=== PATIENT | male | born 1945 | race Caucasian/White ===

== ENCOUNTER 2017-04-21 15:37 | Inpatient (IN) | payer OTHER ==
[2017-04-21] VITALS (11 sets, daily range): BP systolic 84–136; BP diastolic 59–96
[~2017-04-21] VITALS: Ht 175.3 cm; Wt 81.7 kg
--- NOTE | ~2017-04-21 | EKG ---
[address] [place] [address] ELECTROCARDIOGRAM REPORT Name: URBAN DOUGLASS Room #: 215-P ADM IN M.R.#: [id number] Admission: 04/21/17 Attend Phys: Neil To MD Discharge: Date of : 47 Report #: [id number] THIS REPORT FOR: //name// [facility] Test Date: 2017-04-24 Test Time: 06:51:11 Pat Name: URBAN DOUGLASS Department: Room: 215 P Gender: M [employer] Specialist: johnathan : 1945 Requested By: Rigoberto Kenney Order Number: [id number] MD: Ben Queen Measurements Intervals [place] Rate: 94 P: [place]: QRS: -24 QRSD: 112 T: 103 QT: 404 QTc: 506 Interpretive Statements Atrial flutter with variable AV conduction Left bundle branch block Compared to ECG 04/21/2017 15:48:22 heart rate has slowed Electronically Signed On 04-24-2017 8:36:34 CDT by Ben Queen [email or web address] <ELECTRONICALLY SIGNED> By: Ben Queen MD, [facility] 04/24/17 0836 0 0 Ben Queen MD, [facility] /EPI
--- NOTE | ~2017-04-21 | HC ---
[facility] [place] [address] CONSULTATION Name: URBAN DOUGLASS Room #: 215-P [facility]#: [id number] Admission: 04/21/17 Attend Phys: Neil To MD Discharge: 04/25/17 Date of : 47 Report #: [id number] THIS REPORT FOR: //name// CC: Neil Dominguez MD DATE OF SERVICE: 04/22/2017 DATE OF SERVICE: 04/22/2017. PRIMARY CARE PHYSICIAN: Janie Dominguez MD HISTORY OF PRESENT ILLNESS: The patient is a 72-year-old white male who I was asked to see in the hospital today after he was noted to be in atrial flutter. The patient has no previous history of heart disease. He actually underwent a nuclear stress test back in May 2015 because of an abnormal coronary artery calcium score. The nuclear stress test showed no evidence of ischemia, ejection fraction of 58%. The patient does not exercise on a regular basis. He also smokes half pack of cigarettes a day. He does use an inhaler at home. Recently, he has had increasing shortness of breath. He went to see his primary care physician yesterday and was noted to be hypoxic by oximetry. He was sent by ambulance to the emergency room here. In the emergency room, he was found to be in atrial flutter. I was asked to see him for further evaluation and treatment. PAST MEDICAL HISTORY: Otherwise significant for rotator cuff surgery, hernia repair, tonsillectomy. He has no history of hypertension, diabetes, or hyperlipidemia. He had previous screening that showed minimal carotid plaque. MEDICATIONS: Include Ventolin, Spiriva, Wellbutrin, aspirin. ALLERGIES: He has an allergy to PENICILLIN. FAMILY HISTORY: Negative for heart disease. SOCIAL HISTORY: He is . He and his live in [place], [place]. He is a retired maintenance carpenter. Smokes several cigarettes a day but recently quit. Rarely drinks alcohol. REVIEW OF SYSTEMS: He has had no history of stroke, peptic ulcer disease, liver disease, kidney disease, cancer, psychiatric illness, chronic skin condition. Does wear glasses. PHYSICAL EXAMINATION: GENERAL: An elderly male, lying in bed. He appeared in no distress. [address] [address] CONSULTATION Name: URBAN DOUGLASS Room #: 215-P [facility] IN ..#: [id number] Admission: 04/21/17 Attend Phys: Neil To MD Discharge: 04/25/17 Date of : 47 Report #: [id number] VITAL SIGNS: He had a blood pressure of 110/ pulse is 80 and irregular, respirations are nonlabored. He is afebrile. HEENT: Mucous membranes are moist. He is anicteric. Conjunctivae pink. NECK: Veins nondistended. No carotid bruits. CHEST: Distant breath sounds. CARDIOVASCULAR: Irregular rhythm. ABDOMEN: Soft. EXTREMITIES: No edema. Dorsalis pedis pulse 1+ bilaterally. SKIN: Warm, dry. NEUROLOGIC: Nonfocal. DIGNOSTIC DATA: His ECG shows atrial flutter with left axis and septal Q-waves. His workup so far, he had a chest x-ray on admission yesterday that showed aneurysmal dilatation of the aorta. His CT scan of the chest using the PE protocol showed no pulmonary embolus and atelectasis. LABORATORY DATA: Sodium 137, glucose 163. Liver function studies were normal. White blood cell count 8.5, hemoglobin 14.9. IMPRESSION AND RECOMMENDATIONS: 1. Atrial flutter. Rate controlled with digoxin and diltiazem. I would recommend anticoagulation with Xarelto. 2. Chronic obstructive pulmonary disease. 3. History of tobacco abuse. 4. Mild carotid stenosis. <ELECTRONICALLY SIGNED> By: Rigoberto Kenney MD, [facility] 04/29/17 0755 [id number] 0148 Rigoberto Kenney MD, FACC /nt
--- NOTE | ~2017-04-21 | HC ---
[facility] [place] [address] CONSULTATION Name: URBAN DOUGLASS Room #: 215-P [facility] IN ..#: [id number] Admission: 04/21/17 Attend Phys: Neil To MD Discharge: Date of : 47 Report #: [id number] THIS REPORT FOR: //name// CC: Neil Dominguez DATE OF SERVICE: 04/22/2017 PRIMARY CARE PHYSICIAN: Dr. Janie Dominguez. REFERRAL PHYSICIAN: Dr. Neil To. REASON FOR REFERRAL: Dyspnea. HISTORY OF PRESENT ILLNESS: The patient is a 72-year-old white male who presents to the Emergency Room with progressive dyspnea. A pulmonary consultation was requested. The patient has known severe COPD. He is normally followed by Dr. Oj Levy [facility]. He normally uses Spiriva, Symbicort 160 mcg 2 puffs twice a day, Ventolin for COPD. He is not oxygen dependent. The patient was in his usual state of health until for the past week. Patient states he has been short of breath for some time. He thinks it was much worse over the past few weeks. He has had cough productive of purulent sputum. Otherwise, denies any chest pain, hemoptysis, nausea, vomiting, diarrhea. PAST MEDICAL HISTORY: Notable for COPD, history of tobacco abuse, having quit smoking in 2011, a questionable history of asthma, fatty liver, allergic rhinitis. PAST SURGICAL HISTORY: Status post bilateral herniorrhaphy, right rotator cuff repair. ALLERGIES: PENICILLIN, reactions unspecified. HOME MEDICATIONS: Include Spiriva, Rowan, Claritin, Symbicort, Ventolin, Celexa, Flonase, fish oil supplements, multivitamins. FAMILY HISTORY: Noncontributory. SOCIAL HISTORY: Tobacco use as mentioned above. Denies any alcohol use. REVIEW OF SYSTEMS: As mentioned above, otherwise 10-point system review are negative. [facility] [address] [place] [address] CONSULTATION Name: URBAN DOUGLASS Room #: 215-[facility] IN [facility].#: [id number] Admission: 04/21/17 Attend Phys: Neil To MD Discharge: Date of : 47 Report #: [id number] Of note, in the ER, the patient was found to be in atrial flutter with 2:1 block, adenosine was given. PHYSICAL EXAMINATION: GENERAL: He is awake, alert, in no apparent distress. VITAL SIGNS: Temperature is 97.8 degrees Fahrenheit, pulse is 65, respiratory rate is 25, blood pressure 96/62 mmHg, saturation 99%. HEENT: Unremarkable. NECK: Supple without lymphadenopathy or thyromegaly. CHEST: Breath sounds are decreased bilaterally with mild expiratory wheezes. Few scattered crackles are heard in the bases. CARDIOVASCULAR: Regular. Normal S1 and S2. There are no murmurs or gallop. Pulses are 2+/4+ bilaterally. ABDOMEN: Soft, nontender, no organomegaly or masses felt. GENITOURINARY: Deferred. RECTAL: Deferred. EXTREMITIES: There is no edema, cyanosis or clubbing. LABORATORY DATA: Portable chest x-ray and CT chest angiogram reviewed. No evidence of pulmonary embolus. Diffuse bilateral bullous changes are noted. Infiltrates are seen in the right lower lobe. EKG shows T-wave abnormalities, possible anterior infarct. Electrolytes are normal. Liver function test is normal. WBC 11,700 without bandemia. Platelets are normal. Hemoglobin 16.3, arterial blood gas revealed pH 7.46, pCO2 of 37, pO2 92 on 4 liters of O2. Albumin 2.7. IMPRESSION: 1. Acute hypoxic respiratory failure in this 72-year-old white male secondary to exacerbation of COPD. Chest CT and chest x-rays suggest possible right lower lobe pneumonia, in this patient gram-negative and possible aspiration should be considered. 2. Chronic obstructive pulmonary disease exacerbation. CT chest shows diffuse bullous disease in type. 3. Protein-calorie malnutrition with an albumin of 2.7, felt to be severe. RECOMMENDATION: Agree with current treatment plans including corticosteroids, bronchodilators, and broad spectrum antibiotics. In terms of levalbuterol, we will recommend switching from 1.25 mg to 0.63 mg nebulized q. 6 hours along with nebulized ipratropium. DVT and GI prophylaxis will be addressed. Wean O2 for saturation 90%. [address] [address] CONSULTATION Name: URBAN DOUGLASS Room #: 215-P [facility] IN M.R.#: [id number] Admission: 04/21/17 Attend Phys: Neil To MD Discharge: Date of : 47 Report #: [id number] Thank you for this consultation. <ELECTRONICALLY SIGNED> By: Erik Ballard MD 04/23/17 1732 1644 2223 Erik Ballard MD /nt
--- NOTE | ~2017-04-21 | EKG ---
[address] [place] [address] ELECTROCARDIOGRAM REPORT Name: URBAN DOUGLASS Room #: 215-[facility] IN M.R.#: [id number] Admission: 04/21/17 Attend Phys: Neil To MD Discharge: 04/25/17 Date of : 47 Report #: [id number] THIS REPORT FOR: //name// [facility] Test Date: 2017-04-25 Test Time: 06:44:29 Pat Name: URBAN GONZALEZLEY Department: Room: 215 P Gender: M Tower Hand: leo : 1945 Requested By: Rigoberto Kenney Order Number: [id number] MD: Ben Queen Measurements Intervals [place] Rate: 101 P: [place]: QRS: -32 QRSD: 119 T: 165 QT: 362 QTc: 470 Interpretive Statements Atrial flutter with predominant 2:1 AV block Incomplete left bundle branch block Compared to ECG 04/24/2017 06:51:11 Ventricular response is slower Electronically Signed On 04-27-2017 15:33:28 CDT by Ben Queen [email or web address] <ELECTRONICALLY SIGNED> By: Ben Queen MD, [facility] 04/27/17 1533 0644 0644 Ben Queen MD, [facility] /EPI
--- NOTE | ~2017-04-21 | 2DMMODE ---
[facility] [address] [place] [address] 2 D/M-MODE ECHOCARDIOGRAM Name: URBAN DOUGLASS Room #: 215-P [facility] IN [facility]#: [id number] Admission: 04/21/17 Attend Phys: Neil To, Discharge: Date of : 47 Date of Service: 04/23/17 1521 Report #: [id number] THIS REPORT FOR: //name// APPROVED REPORT Study performed: 04/23/2017 09:12:14 EXAM: Comprehensive 2D, Doppler, and color-flow Echocardiogram Patient Location: Bedside Room #: [facility] Status: routine Other Information Study Quality: Fair Indications COPD Atrial Flutter Echo Enhancing Agent Indication: Rule out Shunt Agent(s) / Amount(s) Used: Agitated Saline 7 cc 2D Dimensions RVDd: 45.36 mm IVC: 27.00 mm Volumes Left Atrial Volume (Systole) Single Plane 4CH: 35.07 mL Single Plane 2CH: 55.46 mL LA ESV Index: 26.00 mL/m2 Aortic Valve AoV Peak Suhas.: 1.25 m/s AO Peak Gr.: 6.25 mmHg LVOT Max P.48 mmHg LVOT Max V: 0.93 m/s Pulmonary Valve PV Peak Suhas.: 0.87 m/s PV Peak Gr.: 3.00 mmHg Tricuspid Valve TR Peak Suhas.: 3.00 m/s RAP Estimate: 15.00 mmHg TR Peak Gr.: 35.98 mmHg PA Pressure: 51.00 mmHg [facility] [address] [place] [address] 2 D/M-MODE ECHOCARDIOGRAM Name: URBAN DOUGLASS Room #: 215-P ADM IN M.R.#: [id number] Admission: 04/21/17 Attend Phys: Neil To, Discharge: Date of : 47 Date of Service: 04/23/17 1521 Report #: [id number] Left Ventricle The left ventricle is normal size. There is normal left ventricular wall thickness. The left ventricular systolic function is normal. The left ventricular ejection fraction is within the normal range. LVEF is 50%. This study is not technically sufficient to allow evaluation of the LV diastolic function. Patient in Atrial Flutter. Right Ventricle Right ventricle is mildly dilated. Right ventricle is mildly hypokinetic. Atria The left atrium size is normal. 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 Right atrium is mildly dilated. Aortic Valve The aortic valve is not well visualized.. Trace aortic regurgitation. There is no aortic valvular stenosis. Mitral Valve The mitral valve is normal in structure. Trace mitral regurgitation. No evidence of mitral valve stenosis. Tricuspid Valve The tricuspid valve is normal in structure. There is mild tricuspid regurgitation. . There is moderate pulmonary hypertension with an estimated PAP of 51 mmHg. Pulmonic Valve Pulmonic valve is not well visualized. Great Vessels The aortic root is normal in size. IVC is dilated and collapses <50% with inspiration. Pericardium There is no pericardial effusion. 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 There is mild tricuspid regurgitation. . There is moderate pulmonary hypertension with an estimated PAP of 51 mmHg. The left ventricular systolic function is normal. The left ventricular ejection fraction is within the normal range. [facility] [address] [place] [address] 2 D/M-MODE ECHOCARDIOGRAM Name: URBAN DOUGLASS Room #: 215-P [facility] IN [facility].#: [id number] Admission: 04/21/17 Attend Phys: Neil To, Discharge: Date of : 47 Date of Service: 04/23/17 1521 Report #: [id number] Right ventricle is mildly dilated. Right atrium is mildly dilated. <ELECTRONICALLY SIGNED> By: Rigoberto Kenney MD, [facility]ACC 04/23/17 1521 1521 152 Rigoberto Kenney MD, FACC /INF
--- NOTE | ~2017-04-21 | HC ---
[facility] [place] [address] CONSULTATION Name: URBAN DOUGLASS Room #: 215-P [facility] IN ..#: [id number] Admission: 04/21/17 Attend Phys: Neil To MD Discharge: 04/25/17 Date of : 46 Report #: [id number] THIS REPORT FOR: //name// CC: Neil Dominguez HISTORY OF PRESENT ILLNESS: The patient is a 72-year-old white male who was admitted with acute shortness of breath, noted to have acute hypoxic respiratory failure with COPD exacerbation. He was diagnosed with a right lower lobe infiltrate. He also has atrial flutter would consider for cardioversion in [address] Kenney. He has been followed by Pulmonary Medicine, Internal Medicine and Cardiology. He has improved, but is still needing O2 and does desaturate further with activity. He also has decreased balance and functional mobility and ADL deficits. We are seeing him in rehabilitation medicine consultation. PAST MEDICAL HISTORY: Includes asthma, COPD. HABITS: Former smoker, quit in 2011. PAST SURGICAL HISTORY: Includes right rotator cuff repair, colonoscopy, bilateral hernia repair. ALLERGIES: PENICILLIN. MEDICATIONS: Please see the full medication listing. FAMILY HISTORY: Noncontributory. SOCIAL HISTORY: Lives in a house with his . There were two steps in and another five steps as it is a raised ranch/split level. He was not on O2 premorbidly. REVIEW OF SYSTEMS: Complains of increased shortness of breath with increased activity. No complaints of chest pain, abdominal discomfort. No focal extremity pain complaints. No complaints of headache or any bowel or bladder changes were verbalized. PHYSICAL EXAMINATION: GENERAL: He is a 72-year-old white male in no obvious distress. He has 4 liters at rest, has gone up to 6 liters with activity and does tend to desaturate. VITAL SIGNS: Temperature is 98, pulse 110, respirations 16, blood pressure 124/86. He is alert. HEENT: Appeared to be benign. Nasal prong O2 is in place. NEUROLOGIC: Facies are symmetric. He has functional range of motion of both upper extremities with strength of grade 4-/5. DTRs are trace to 1. He does [facility] [address] [place] [address] CONSULTATION Name: URBAN DOUGLASS Amelia Room #: 215-P [facility] IN .R.#: [id number] Admission: 04/21/17 Attend Phys: Neil To MD Discharge: 04/25/17 Date of : 47 Report #: [id number] have some tremulousness of his upper extremities. In his lower extremities, there is no focal calf swelling, functional range of motion with strength of grade 4-/5. DTRs are trace to 1. He is standby assistance for sit to stand. He tends to have decreased balance, needs the roller walker, was min assist to try to get in and out of the showering and OT. With increased activity, he would tend to desaturate and the O2 needed to be turned up to 6 liters as noted above. ASSESSMENT: A 72-year-old white male with the following problem list: 1. Pulmonary rehabilitation. 2. Chronic obstructive pulmonary disease exacerbation. 3. Acute hypoxic respiratory failure. 4. Medical complexity with generalized debilitation. 5. Right lower lobe infiltrate. 6. Atrial flutter, considering cardioversion in 3 weeks. 7. Glucose intolerance. 8. Past tobacco abuse. PLAN: The patient is a candidate for an acute in-hospital inpatient rehabilitation stay. From a preadmission screening perspective: 1. Prior level of function is well delineated above. 2. Expected level of improvement would be for the patient to become modified independent with transfers, mobility and ADLs to improve balance as well as functional mobility and ADL independence, overall endurance and ideally to decreased O2 needs. Would anticipate the length of stay that should be fairly short, would hope between 5-10 days. 3. Evaluation of the patient's risk for clinical complications. He does have the multiple medical comorbidities as noted above. 4. Condition that caused the need for rehabilitation would be the pulmonary rehabilitation and the medical complexity with generalized debilitation. 5. Treatments needed would include PT and OT 1 and 1-1/2 hours per day each five days a week throughout the duration of the acute inpatient rehabilitation stay. 6. Anticipated discharge destination would be back to the home setting. 7. Would anticipate home healthcare therapies once he is ready for discharge back to the home setting. 8. The patient meets diagnostic criteria for an acute in-hospital inpatient rehabilitation stay. He meets medical necessity criteria and we will have the multiple outplacement consultant physicians including Pulmonary Medicine, Cardiology and Internal Medicine continue to follow while he is on the acute rehab cabrera. He has the tolerance for an acute in-hospital inpatient rehabilitation stay and has appropriate discharge goals back to the home setting. <ELECTRONICALLY SIGNED> By: Rigoberto Moreno MD 04/29/17 1518 1255 0552 Rigoberto Moreno MD /nt
--- NOTE | ~2017-04-21 | EKG ---
[address] [place] [address] ELECTROCARDIOGRAM REPORT Name: URBAN DOUGLASS Room #: 215-P ADM IN M.R.#: [id number] Admission: 04/21/17 Attend Phys: Neil To MD Discharge: Date of : 47 Report #: [id number] THIS REPORT FOR: //name// [facility] Test Date: 2017-04-23 Test Time: 00:07:53 Pat Name: URBAN GONZALEZLEY Department: Room: 215 P Gender: M Land Manager: Veronica Cantor : 1945 Requested By: Low John Order Number: [id number] MD: Ben Queen Measurements Intervals [place] Rate: 114 P: 89 [place]: 175 QRS: -40 QRSD: 124 T: 251 QT: 351 QTc: 484 Interpretive Statements Atrial flutter with 2-1 AV conduction Left bundle branch block Compared to ECG 04/21/2017 15:48:22 Left bundle-branch block now present Electronically Signed On 04-24-2017 8:05:06 CDT by Ben Queen [email or web address] <ELECTRONICALLY SIGNED> By: Ben Queen MD, [facility] 04/24/17 0805 0007 Ben Queen MD, [facility] /EPI
--- NOTE | ~2017-04-21 | EKG ---
[address] [address] ELECTROCARDIOGRAM REPORT Name: URBAN DOUGLASS Room #: 249-P ADM IN M.R.#: [id number] Admission: 04/21/17 Attend Phys: Neil To MD Discharge: Date of : 47 Report #: [id number] THIS REPORT FOR: //name// [facility] ED Test Date: 2017-04-21 Test Time: 15:48:22 Pat Name: URBAN GONZALEZLEY Department: Room: 249 Gender: M Digital Retoucher: JUAN R : 1945 Requested By: Colt Tubbs Order Number: [id number] MD: Ben Queen Measurements Intervals [place] Rate: 136 P: 83 [place]: 86 QRS: -51 QRSD: 145 T: 263 QT: 363 QTc: 547 Interpretive Statements Atrial flutter with 2-1 AV conduction Nonspecific IVCD with LAD Probable anterior infarct, age indeterminate Abnormal T, consider ischemia, diffuse leads No previous ECG available for comparison Electronically Signed On 04-22-2017 8:46:30 CDT by Ben Queen [email or web address] <ELECTRONICALLY SIGNED> By: Ben Queen MD, [facility] 04/22/17 0846 1548 1548 Ben Queen MD, [facility] /EPI
--- NOTE | ~2017-04-21 | EKG ---
[address] [address] ELECTROCARDIOGRAM REPORT Name: URBAN DOUGLASS Room #: 215-[facility] IN M.R.#: [id number] Admission: 04/21/17 Attend Phys: Neil To MD Discharge: 04/25/17 Date of : 47 Report #: [id number] THIS REPORT FOR: //name// [facility] Test Date: 2017-04-24 Test Time: 22:22:48 Pat Name: URBAN GONZALEZLEY Department: Room: 215 Gender: M Cancer Program Consultant: Maria C GÓMEZ : 1945 Requested By: Neil To Order Number: [id number] MD: Ben Queen Measurements Intervals [place] Rate: 109 P: 80 [place]: 204 QRS: -36 QRSD: 122 T: 169 QT: 383 QTc: 516 Interpretive Statements Supraventricular tachycardia, probably atrial flutter with 2-1 AV conduction Left bundle branch block Compared to ECG 04/24/2017 06:51:11 Ventricular response has increased Electronically Signed On 04-27-2017 15:30:25 CDT by Ben Queen [email or web address] <ELECTRONICALLY SIGNED> By: Ben Queen MD, [facility] 04/27/17 1530 222 21 Ben Queen MD, [facility] /EPI
[~2017-04-21 15:37] MED LIST: FISH OIL 1,0001 EAC5 PO; FLONASE 0.05%50 MCG NASAL; MULTIVITAMINS PO; VENTOLIN HFA INH8 GM INH
[2017-04-21 16:43] LABS: ABG SAMPLE TYPE ARTERIAL; BE(vivo) 2.5 mmol/L (-2 to +3); HCO3 26.1 mmol/L (22.0-26.0); LACTATE 1.56 mmol/L (0.5-2.0); O2(CT) 22.1 mL/dL (15.0-23.0); O2Hb 96.1 % (92.0-98.0); PCO2 37.6 mmHg (35.0-45.0); PO2 92.3 mmHg (80.0-100.0); sO2 97.4 % (92.0-98.0); tCO2 27.3 mmol/L (24.0-30.0)
[2017-04-21 16:44] LABS: ABG COMMENT NO COMPLICATIONS.; STICK SITE R.RADIAL
[2017-04-21 16:53] LABS: HEMATOCRIT 47.9 % (42.0-52.0); HEMOGLOBIN 16.3 gm/dL (14.0-18.0); MCH 31.9 pg (26.0-34.0); MCHC 33.9 g/dL (28.0-37.0); MCV 94.1 fL (80.0-100.0); PLATELET COUNT 253 thou/uL (150-400); RDW 13.5 % (10.5-14.5); WBC 11.7 thou/uL (4.0-11.0)
[2017-04-21 16:54] LABS: MANUAL DIFF YES
[2017-04-21 17:05] LABS: ANION GAP 7 mmol/L (7-16); BUN 11 mg/dL (7-18); CALCIUM 9.1 mg/dL (8.5-10.1); CHLORIDE 99 mmol/L (98-107); CO2 31 mmol/L (21-32); CREATININE 0.9 mg/dL (0.7-1.3); GLUCOSE 149 mg/dL (74-106); POTASSIUM 4.1 mmol/L (3.5-5.1); SODIUM 137 mmol/L (136-145)
[2017-04-21 17:09] LABS: PROTIME 10.8 Seconds (9.3-11.4)
[2017-04-21 17:17] LABS: NT-PRO BRAIN NAT PEPTIDE 632 pg/mL (<300); TROPONIN-I < 0.04 ng/mL (<0.04-0.07)
[2017-04-21 17:24] LABS: ABSOLUTE NEUTROPHILS 10.2 thou/uL (1.4-8.2); TOTAL CELL COUNT 100
[2017-04-21 17:25] LABS: ANISOCYTOSIS 1+
[2017-04-21] MEDS ORDERED: SPIRIVA18 MCG INH (20:33)
[2017-04-21] MEDS ORDERED: ALLEGRA ALLERGY60 MG PO (20:34)
[2017-04-21] MEDS ORDERED: CLARITIN10 MG PO (20:35)
[2017-04-21] MEDS ORDERED: SYMBICORT160 MCG/4. INH (20:36)
[2017-04-21] MEDS ORDERED: VENTOLIN HFA INH8 GM INH (20:38)
[2017-04-21] MEDS ORDERED: CELEXA10 M1 PO (20:39)
[2017-04-22] VITALS (22 sets, daily range): BP systolic 86–160; BP diastolic 60–145
[2017-04-22 04:48] LABS: HEMATOCRIT 44.2 % (42.0-52.0); HEMOGLOBIN 14.9 gm/dL (14.0-18.0); MCH 31.9 pg (26.0-34.0); MCHC 33.8 g/dL (28.0-37.0); MCV 94.4 fL (80.0-100.0); RBC 4.68 mil/uL (4.50-6.00); RDW 13.4 % (10.5-14.5); WBC 8.5 thou/uL (4.0-11.0)
[2017-04-22 05:08] LABS: ALBUMIN 2.7 g/dL (3.4-5.0); ALKALINE PHOSPHATASE 51 U/L (46-116); ANION GAP 8 mmol/L (7-16); BUN 11 mg/dL (7-18); CALCIUM 8.5 mg/dL (8.5-10.1); CHLORIDE 103 mmol/L (98-107); CO2 26 mmol/L (21-32); CREATININE 0.9 mg/dL (0.7-1.3); GLUCOSE 163 mg/dL (74-106); POTASSIUM 4.7 mmol/L (3.5-5.1); SGOT 21 U/L (15-37); SGPT 23 U/L (30-65); SODIUM 137 mmol/L (136-145); TOTAL BILIRUBIN 0.4 mg/dL (<0.1-1.0); TOTAL PROTEIN 6.4 g/dL (6.4-8.2); TROPONIN-I < 0.04 ng/mL (<0.04-0.07)
[2017-04-22] MEDS ORDERED: WELLBUTRIN SR150 MG PO (08:22)
[2017-04-23 03:13] LABS: HEMOGLOBIN 14.4 gm/dL (14.0-18.0); MCH 31.9 pg (26.0-34.0); MCHC 33.5 g/dL (28.0-37.0); MCV 95.3 fL (80.0-100.0); RBC 4.51 mil/uL (4.50-6.00); RDW 13.5 % (10.5-14.5); WBC 14.1 thou/uL (4.0-11.0)
[2017-04-23 03:29] LABS: CALCIUM 8.6 mg/dL (8.5-10.1); CREATININE 0.8 mg/dL (0.7-1.3); POTASSIUM 4.7 mmol/L (3.5-5.1)
[2017-04-23 04:09] VITALS: BP 158/83
[2017-04-23 08:00] VITALS: BP 118/77
[2017-04-23 11:58] VITALS: BP 111/75
[2017-04-23 15:22] VITALS: BP 104/63
[2017-04-23 20:04] VITALS: BP 110/69
[2017-04-24 02:50] LABS: HEMATOCRIT 42.3 % (42.0-52.0); HEMOGLOBIN 14.5 gm/dL (14.0-18.0); MCH 32.2 pg (26.0-34.0); MCHC 34.2 g/dL (28.0-37.0); MCV 94.2 fL (80.0-100.0); RBC 4.5 mil/uL (4.50-6.00); RDW 13.6 % (10.5-14.5); WBC 16.3 thou/uL (4.0-11.0)
[2017-04-24 03:04] LABS: CALCIUM 8.9 mg/dL (8.5-10.1); CREATININE 0.9 mg/dL (0.7-1.3); DIGOXIN 1.7 ng/mL (0.9-2.0); POTASSIUM 5.1 mmol/L (3.5-5.1)
[2017-04-24 03:58] VITALS: BP 100/63
[2017-04-24 08:00] VITALS: BP 106/56
[2017-04-24 11:30] VITALS: BP 113/76
[2017-04-24 15:45] VITALS: BP 119/80
[2017-04-24 20:04] VITALS: BP 123/77
[2017-04-24 20:55] VITALS: BP 119/80
[2017-04-24 21:54] LABS: URINE BILIRUBIN NEGATIVE (Negative); URINE BLOOD NEGATIVE (Negative); URINE COLOR YELLOW; URINE GLUCOSE-RANDOM* NEGATIVE (Negative); URINE KETONES NEGATIVE (Negative); URINE LEUKOCYTES-REFLEX NEGATIVE (Negative); URINE PROTEIN (DIPSTICK) NEGATIVE (Negative); URINE SPECIFIC GRAVITY >= 1.030 (1.003-1.035); URINE UROBILINOGEN 0.2 E.U./dl (0.2-1.0)
[2017-04-25 04:46] VITALS: BP 123/82
[2017-04-25 05:02] LABS: HEMATOCRIT 43.5 % (42.0-52.0); HEMOGLOBIN 14.7 gm/dL (14.0-18.0); MCH 31.7 pg (26.0-34.0); MCHC 33.7 g/dL (28.0-37.0); RBC 4.63 mil/uL (4.50-6.00); RDW 13.9 % (10.5-14.5); WBC 10.9 thou/uL (4.0-11.0)
[2017-04-25 05:12] LABS: CALCIUM 8.5 mg/dL (8.5-10.1); CREATININE 0.9 mg/dL (0.7-1.3); POTASSIUM 4.4 mmol/L (3.5-5.1)
[2017-04-25 08:19] VITALS: BP 118/48
[2017-04-25 12:21] VITALS: BP 124/86
[2017-04-25] MEDS ORDERED: NICOTINE TRANSD21 M1 TRANSDERM (13:16)
[2017-04-25] MEDS ORDERED: XOPENEX 0.63 MG/3 M1 INH ×2 (13:16)
[2017-04-25] MEDS ORDERED: IPRATROPIU0.2 MG/1 M INH (13:16)
[2017-04-25] MEDS ORDERED: XARELTO20 MG PO (13:17)
[2017-04-25] MEDS ORDERED: PACERONE 200 M200 M1 PO (13:17)
[2017-04-25] MEDS ORDERED: DIGOXIN250 MCG PO (13:17)
[2017-04-25] MEDS ORDERED: CARDIZEM CD 30300 M1 PO (13:18)
[2017-04-25] MEDS ORDERED: WELLBUTRIN 100100 MG PO (13:18)
[2017-04-25] MEDS ORDERED: LEVAQUIN 750 M750 MG PO (13:19)
[2017-04-25] MEDS ORDERED: MUCINEX TA600 MG/TA1 PO (13:19)
[2017-04-25] MEDS ORDERED: PREDNISONE 20 M20 MG PO (13:20)
== END 2017-04-25 16:41 | DRG 177 ==
LOC: ER 15:37 → EROBS 17:24 → ICU 17:24 → 2N 04-22 18:12
PROVIDERS: Emergency Medicine; Hospitalist; Internal Medicine Cardiovascular Disease; Internal Medicine Pulmonary Disease
DX: J69.0 Pneumonitis due to inhalation of food and vomit (principal); J96.01 Acute respiratory failure with hypoxia; E43 Unspecified severe protein-calorie malnutrition; I48.92 Unspecified atrial flutter; J44.1 Chronic obstructive pulmonary disease with (acute) exacerbation; J44.0 Chronic obstructive pulmonary disease with (acute) lower respiratory infection; I65.29 Occlusion and stenosis of unspecified carotid artery; E74.39 Other disorders of intestinal carbohydrate absorption; I48.91 Unspecified atrial fibrillation; Z88.0 Allergy status to penicillin; Z79.899 Other long term (current) drug therapy; Z79.51 Long term (current) use of inhaled steroids; Z68.26 Body mass index [BMI] 26.0-26.9, adult; Z87.891 Personal history of nicotine dependence
CPT/HCPCS: 10081; 10203

== ENCOUNTER 2017-04-25 12:58 | Inpatient (IN) | payer OTHER ==
[~2017-04-25] VITALS: Ht 175.3 cm; Wt 81.2 kg
--- NOTE | ~2017-04-25 | H ---
[facility] [place] [address] HISTORY AND PHYSICAL Name: URBAN DOUGLASS Room #: 510-P ADM IN .R.#: [id number] Admission: 04/25/17 Attend Phys: Rigoberto Moreno MD Discharge: Date of : 47 Report #: [id number] THIS REPORT FOR: //name// CC: Rigoberto Dominguez DATE OF SERVICE: 04/25/2017 HISTORY OF PRESENT ILLNESS: The patient is a 72-year-old white male, originally admitted to [facility] with acute shortness of breath, was noted to have acute hypoxic respiratory failure with COPD exacerbation. He was diagnosed with a right lower lobe infiltrate. He also has atrial flutter and there was consideration for cardioversion in [address] Kenney. He was followed by pulmonary medicine, internal medicine and cardiology. He improved, but is still needing oxygen and does desaturate further with activity. He was noted to have functional mobility and ADL deficits, has pulmonary rehabilitation needs and has medical complexity with generalized debilitation. He has been admitted for acute in-hospital inpatient rehabilitation. PAST MEDICAL HISTORY: Includes asthma and COPD. HABITS: Former smoker, quit in 2011. PAST SURGICAL HISTORY: Includes right rotator cuff repair, colonoscopy and bilateral hernia repair. MEDICATIONS: Please see the full medication listing. Each of these were individually reconciled upon admission. They include [id number]-qvyyztwa, supplements, etc. ALLERGIES: PENICILLIN. FAMILY HISTORY: Noncontributory. SOCIAL HISTORY: He lives in a house with his . There are 2 steps in and another 5 steps as it is a raised ranch splint level. He was not on O2 premorbidly. REVIEW OF SYSTEMS: He complains of increased shortness of breath with increased activity. No complaints of chest pain or abdominal discomfort. PHYSICAL EXAMINATION: GENERAL: On examination, a 72-year-old white male in no obvious distress. He was seen earlier. He was pleasant, sleepy, on 5 liters O2. VITAL SIGNS: Temperature 36.4, pulse 117, respirations 18 and blood pressure 127/80. [facility] [address] [place] [address] HISTORY AND PHYSICAL Name: URBAN DOUGLASS Room #: 510-P [facility] [place] [facility]#: [id number] Admission: 04/25/17 Attend Phys: Rigoberto Moreno MD Discharge: Date of : 47 Report #: [id number] CHEST: Some decreased breath sounds throughout, otherwise sounded clear. CARDIAC EXAMINATION: Regular with extra beats. ABDOMEN: Bowel sounds positive, nontender. GENITOURINARY: Deferred. RECTAL EXAMINATION: Deferred. HEENT: Appeared to be benign. NEUROLOGIC: He has functional range of motion of both upper extremities with strength grade 4-/5. DTRs are trace to 1. He has some tremulousness of the upper extremities. In his lower extremities, there is no focal calf swelling, with functional range of motion with strength grade 4-/5. DTRs are trace to 1. He has been standby assistance for basic sit to stand and has needed increased O2 needs for activity as he tends to desaturate. ASSESSMENT: A 72-year-old white male with the following problem list: 1. Pulmonary rehabilitation. 2. Chronic obstructive pulmonary disease exacerbation. 3. Acute hypoxic respiratory failure. 4. Medical complexity with generalized debilitation. 5. Right lower lobe infiltrate. 6. Atrial flutter, considering cardioversion in [address] Kenney. 7. Glucose intolerance. 8. Tobacco abuse in the past. PLAN: The patient is admitted for acute in-hospital inpatient rehabilitation. From a post-admission physician evaluation perspective, there are no relevant changes since the preadmission screening. Please see the above review of prior and current medical and functional conditions and comorbidities. Please see the patient's prior and current functional status. As far as risk of complications, there are multiple medical comorbidities as noted above. Initial plan of care involves the interdisciplinary acute inpatient rehabilitation program with the goal of maximizing the patient's functional independence so that he can hopefully return back to his prior living situation. Measurable functional goals would be for him to become modified independent with transfers, mobility and ADLs so that he can return back to the home setting. Prognosis is reasonably good with estimated length of stay probably around 10 days to 2 weeks, likely longer if needed. Potential barriers would include his multiple medical comorbidities and decreased functional status. The patient meets diagnostic criteria for an acute in-hospital inpatient rehabilitation stay. He meets medical necessity criteria and we will have the windows consultant physicians continue to follow while he is on rehabilitation. He will have pulmonary medicine involved. This level of care would not be possible with any nursing facility. He does have the tolerance for an acute inpatient [address] [address] HISTORY AND PHYSICAL Name: URBAN DOUGLASS Room #: 510-P [facility] IN M.R.#: [id number] Admission: 04/25/17 Attend Phys: Rigoberto Moreno MD Discharge: Date of : 46 Report #: [id number] rehabilitation stay and has appropriate discharge goals back to the home setting. <ELECTRONICALLY SIGNED> By: Rigoberto Moreno MD 04/29/17 1518 1257 1345 Rigoberto Moreno MD /nt
--- NOTE | ~2017-04-25 | EKG ---
[address] [address] ELECTROCARDIOGRAM REPORT Name: URBAN DOUGLASS Room #: 510-P ADM IN M.R.#: [id number] Admission: 04/25/17 Attend Phys: Rigoberto Moreno MD Discharge: Date of : 47 Report #: [id number] THIS REPORT FOR: //name// [facility] Test Date: 2017-04-28 Test Time: 06:46:58 Pat Name: urban chowley Department: Room: [facility] Gender: M Disk Operator: leo : 1945 Requested By: Order Number: [id number] MD: Kendall Olea Measurements Intervals [place] Rate: 86 P: [place]: QRS: -24 QRSD: 123 T: 111 QT: 428 QTc: 512 Interpretive Statements Atrial flutter Left bundle branch block Compared to ECG 04/25/2017 06:44:29 2:1 AV block no longer present Electronically Signed On 04-28-2017 17:56:45 CDT by Kendall Olea [email or web address] <ELECTRONICALLY SIGNED> By: Kendall Olea MD 04/28/17 1756 Kendall Olea MD /VICKI
--- NOTE | ~2017-04-25 | PLAN ---
[facility] [place] [address] REHAB UNIT PLAN OF CARE Name: URBAN DOUGLASS Room #: 510-P ADM IN .R.#: [id number] Admission: 04/25/17 Attend Phys: Rigoberto Moreno MD Discharge: Date of : 47 Report #: [id number] THIS REPORT FOR: //name// CC: Rigoberto Dominguez The patient is seen back today in followup. He is in no distress. He has a temperature of 97.6, pulse 105, respirations 18, blood pressure 127/67. He has decreased his O2 needs down to 2.5 liters. He is gradually improving with his functional mobility. Transfers are now min assist. He is ambulating 150 feet front-wheeled walker with min assist. In occupational therapy, he is set up for upper body dressing and set up for lower body dressing. ASSESSMENT: 1. Pulmonary rehabilitation. 2. Chronic obstructive pulmonary disease exacerbation. 3. Acute hypoxic respiratory failure. 4. Medical complexity with generalized debilitation. 5. Right lower lobe infiltrate. 6. Atrial flutter, considering cardioversion in the next couple of weeks as per Dr. Kenney. 7. Glucose intolerance. 8. Tobacco abuse in the past. PLAN: The overall plan of care is based on the preadmission screen, post-admission physician evaluation and information garnered from therapy assessments. 1. Estimated length of stay is probably at least 10 days to 2 weeks. 2. Medical prognosis is reasonably good. 3. Anticipated interventions includes the interdisciplinary acute inpatient rehabilitation program with PT, OT working with him, rehab nursing assisting regarding medication management, skin care prophylaxis, bowel and bladder issues and nursing education. Case management is involved as well as the energy sales consultant physicians. 4. Anticipated functional outcomes would be for the patient to become modified independent with transfers, mobility and ADLs at least at the walker level with hopeful improvement in endurance and independence with ADLs. 5. Discharge destination would be back to the home setting where he lives with his . 6. Expected therapy by discipline includes PT and OT 1-1/2 hours per day each five days a week throughout the duration of the acute inpatient rehabilitation stay. <ELECTRONICALLY SIGNED> By: Rigoberto Moreno MD 04/29/17 1518 0821 0926 Rigoberto Moreno MD /nt
--- NOTE | ~2017-04-25 | EKG ---
[address] [address] ELECTROCARDIOGRAM REPORT Name: URBAN DOUGLASS Room #: 510-P ADM IN M.R.#: [id number] Admission: 04/25/17 Attend Phys: Rigoberto Moreno MD Discharge: Date of : 47 Report #: [id number] THIS REPORT FOR: //name// [facility] Test Date: 2017-04-30 Test Time: 07:16:10 Pat Name: URBAN DOUGLASS Department: Room: 510 P Gender: M Forms Builder: ccroninm : 1945 Requested By: Rigoberto Kenney Order Number: [id number] MD: Ben Queen Measurements Intervals [place] Rate: 79 P: [place]: QRS: -41 QRSD: 120 T: 163 QT: 459 QTc: 527 Interpretive Statements Atrial flutter Left bundle branch block Compared to ECG 04/28/2017 06:46:58 No significant change was found Electronically Signed On 04-30-2017 8:46:21 CDT by Ben Queen [email or web address] <ELECTRONICALLY SIGNED> By: Ben Queen MD, [facility] 04/30/17 0846 5 5 Ben Queen MD, [facility] /EPI
--- NOTE | ~2017-04-25 | HC ---
[facility] [place] [address] CONSULTATION Name: URBAN DOUGLASS Room #: 510-P [facility] IN ..#: [id number] Admission: 04/25/17 Attend Phys: Rigoberto Moreno MD Discharge: 05/02/17 Date of : 47 Report #: [id number] THIS REPORT FOR: //name// CC: Rigoberto Dominguez DATE OF SERVICE: 04/27/2017 NEUROBEHAVIORAL STATUS EXAM ATTENDING PHYSICIAN: Rigoberto Moreno M.D [employer] ARTIST: Grover Cantor, PhD CLINICAL PRESENTATION: The patient is a 72-year-old male admitted to [facility] rehabilitation unit for a comprehensive inpatient rehabilitation program to improve functional mobility and activities of daily living and self-care and mental status secondary to deficits from asthma and COPD. He was in his normal state of health when he had a severe difficulty with breathing, he reports having gone through the emergency room and was diagnosed with a right lower lobe infiltrate and atrial flutter. The assessment on admission includes chronic obstructive pulmonary disease exacerbation, acute hypoxic respiratory failure, medical complexity with generalized debilitation, right lower lobe infiltrates, atrial flutter with considering cardioversion, glucose intolerance and tobacco abuse. A complete description of his medical condition and history can be found in his medical record. Neuropsychological consultation was requested to provide assistance in the assessment of cognitive and emotional status and to provide recommendations and services. Prior to this most recent medical event, he was independent with activities of daily living. The patient is with one child. He is a high school graduate. 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 He does not report a history of alcohol abuse. However, he indicates having had 2 beers daily. No history of concussion is reported. He does indicate having had a 1 pack a day history of cigarette use. TECHNIQUES UTILIZED: Clinical interview, review of medical records, staff consultation and behavioral observation, mini mental status exam 2 standard version and clock drawing. EXAMINATION FINDINGS: The patient was alert and cooperative with the assessment. He accurately described events surrounding his admission. There is no evidence of aphasia. His thoughts are logical and goal oriented. No evidence of thought disorder. He does not describe auditory or visual hallucinations. He denies difficulty with sleep, appetite, with memory or word finding. Mild degree of anxiety is described. [address] [address] CONSULTATION Name: RAFATURBAN Room #: 510-P [facility]#: [id number] Admission: 04/25/17 Attend Phys: Rigoberto Moreno MD Discharge: 05/02/17 Date of : 47 Report #: [id number] His performance on the MMSE 2 standard version was within normal limits with a raw score of 27/30. However, he was 1/3 for immediate recall of 3 items after a brief time delay and distraction. The patient also had difficulty in copying a simple geometric design. Clock drawing was impaired. The patient had difficulty both in listing the numbers of the clock as well as setting the hands at a designated time. DIAGNOSTIC IMPRESSION: Mild neurocognitive disorder, unspecified, without behavior disorder. Adjustment disorder with anxious mood. RECOMMENDATIONS: The patient may require increased assistance in the management of activities of daily living upon his return home. He was living with his and she is likely to be able to provide monitoring and supervision to help maintain safety. Reassurance and support along with breathing and relaxation techniques will also be helpful with the management of anxiety. Continued encouragement will be necessary to maintain absence from tobacco use. Thank you very much for allowing me to provide the consultation on this patient. <ELECTRONICALLY SIGNED> By: Grover Cantor, PhD 05/03/17 1527 1547 0011 Grover Cantor, PhD /nt
[~2017-04-25 12:58] MED LIST changes: +ALLEGRA ALLERGY60 MG PO; +CELEXA10 M1 PO; +CLARITIN10 MG PO; +SPIRIVA18 MCG INH; +SYMBICORT160 MCG/4. INH; +WELLBUTRIN SR150 MG PO
[2017-04-25] MEDS ORDERED: IPRATROPIU0.2 MG/1 M INH (13:16)
[2017-04-25] MEDS ORDERED: XOPENEX 0.63 MG/3 M1 INH ×2 (13:16)
[2017-04-25] MEDS ORDERED: NICOTINE TRANSD21 M1 TRANSDERM (13:16)
[2017-04-25] MEDS ORDERED: PACERONE 200 M200 M1 PO (13:17)
[2017-04-25] MEDS ORDERED: XARELTO20 MG PO (13:17)
[2017-04-25] MEDS ORDERED: DIGOXIN250 MCG PO (13:17)
[2017-04-25] MEDS ORDERED: CARDIZEM CD 30300 M1 PO (13:18)
[2017-04-25] MEDS ORDERED: WELLBUTRIN 100100 MG PO (13:18)
[2017-04-25] MEDS ORDERED: LEVAQUIN 750 M750 MG PO (13:19)
[2017-04-25] MEDS ORDERED: MUCINEX TA600 MG/TA1 PO (13:19)
[2017-04-25] MEDS ORDERED: PREDNISONE 20 M20 MG PO (13:20)
[2017-04-25 17:00] VITALS: BP 122/73
[2017-04-25 18:30] VITALS: BP 123/81
[2017-04-25 21:00] VITALS: BP 121/74
[2017-04-26 04:44] LABS: HEMATOCRIT 45.3 % (42.0-52.0); HEMOGLOBIN 15.3 gm/dL (14.0-18.0); MCH 31.4 pg (26.0-34.0); MCHC 33.8 g/dL (28.0-37.0); MCV 93.1 fL (80.0-100.0); RBC 4.87 mil/uL (4.50-6.00); RDW 13.4 % (10.5-14.5); WBC 9.7 thou/uL (4.0-11.0)
[2017-04-26 04:51] VITALS: BP 111/75
[2017-04-26 04:58] LABS: CALCIUM 8.4 mg/dL (8.5-10.1); CREATININE 0.7 mg/dL (0.7-1.3); POTASSIUM 4.3 mmol/L (3.5-5.1)
[2017-04-26 16:00] VITALS: BP 135/87
[2017-04-26 21:00] VITALS: BP 123/69
[2017-04-27 05:38] VITALS: BP 101/75
[2017-04-27 15:54] VITALS: BP 127/86
[2017-04-27 20:31] VITALS: BP 127/75
[2017-04-28 04:49] VITALS: BP 149/70
[2017-04-28 06:46] VITALS: BP 127/67
[2017-04-28 07:34] LABS: HEMATOCRIT 49.4 % (42.0-52.0); HEMOGLOBIN 16.3 gm/dL (14.0-18.0); MCH 30.9 pg (26.0-34.0); MCHC 32.9 g/dL (28.0-37.0); MCV 93.8 fL (80.0-100.0); RBC 5.27 mil/uL (4.50-6.00); RDW 13.3 % (10.5-14.5); WBC 11.1 thou/uL (4.0-11.0)
[2017-04-28 07:42] LABS: CALCIUM 8.5 mg/dL (8.5-10.1); CREATININE 0.9 mg/dL (0.7-1.3); POTASSIUM 4.4 mmol/L (3.5-5.1)
[2017-04-28 16:00] VITALS: BP 129/79
[2017-04-28 21:05] VITALS: BP 126/76
[2017-04-29 05:26] VITALS: BP 123/83
[2017-04-29 16:00] VITALS: BP 120/77
[2017-04-30 05:58] VITALS: BP 120/77
[2017-04-30 15:41] VITALS: BP 98/65
[2017-04-30 16:25] VITALS: BP 98/65
[2017-05-01 15:08] VITALS: BP 98/65
[2017-05-01 16:00] VITALS: BP 137/74
[2017-05-02 04:35] VITALS: BP 116/75
[2017-05-02] MEDS ORDERED: DIGOXIN125 MCG PO (08:36)
[2017-05-02] MEDS ORDERED: PREDNISONE 10 M10 MG PO (08:39)
[2017-05-02 09:14] VITALS: BP 98/65
[2017-05-02 09:33] VITALS: BP 98/65
[2017-05-02 10:14] VITALS: BP 98/65
[2017-05-02] MEDS ORDERED: NICOTINE TRANSD21 M1 TRANSDERM (12:36)
== END 2017-05-02 15:33 | disposition home health service (06) | DRG 947 ==
PROVIDERS: Hospitalist; Physical Medicine & Rehabilitation
DX: R53.81 Other malaise (principal); J96.01 Acute respiratory failure with hypoxia; J44.1 Chronic obstructive pulmonary disease with (acute) exacerbation; I48.92 Unspecified atrial flutter; E87.1 Hypo-osmolality and hyponatremia; G31.84 Mild cognitive impairment of uncertain or unknown etiology; F43.20 Adjustment disorder, unspecified; I49.9 Cardiac arrhythmia, unspecified; I48.91 Unspecified atrial fibrillation; E11.9 Type 2 diabetes mellitus without complications; D72.829 Elevated white blood cell count, unspecified; Z79.899 Other long term (current) drug therapy; Z88.0 Allergy status to penicillin; Z87.891 Personal history of nicotine dependence
CPT/HCPCS: 10112

== ENCOUNTER → 2017-05-13 | Outpatient (CLI) | payer OTHER ==
[~2017-05-13] MED LIST changes: +ATROVENT HFA14 GM INH; +CARDIZEM CD 30300 M1 PO; +CENTRUM SILVER1 EAC2 PO; +DIGOXIN125 MCG PO; +DIGOXIN250 MCG PO; +DUONEB 2.5-0.5 M3 ML INH; +FISH OIL 1,001000 M2 PO; +IPRATROPIU0.2 MG/1 M INH; +LEVAQUIN 750 M750 MG PO; +MUCINEX TA600 MG/TA1 PO; +MUCINEX TA600 MG/TA2 PO; +MUCINEX1200 MG PO; +NICOTINE TRANSD21 M1; +NICOTINE TRANSD21 M1 TRANSDERM; +PACERONE 200 M200 M1 PO; +PREDNISONE 10 M10 MG PO; +PREDNISONE 20 M20 MG PO; +PULMICORT INH; +VITAMIN E400 UNIT PO; +WELLBUTRIN 100100 MG PO; +XARELTO20 MG PO; +XOPENEX 0.63 MG/3 M1 INH
== END ==
LOC: RAD 08:00
DX: J44.9 Chronic obstructive pulmonary disease, unspecified (principal); R07.9 Chest pain, unspecified

== ENCOUNTER → 2017-05-15 | Outpatient (CLI) | payer OTHER ==
[~2017-05-15] VITALS: Ht 172.7 cm; Wt 71.2 kg
--- NOTE | ~2017-05-15 | EKG ---
[address] [address] ELECTROCARDIOGRAM REPORT Name: URBAN DOUGLASS [id number] Admission: 05/15/17 Attend Phys: Rigoberto Kenney MD, Discharge: Date of : 47 Report #: [id number] THIS REPORT FOR: //name// [facility] Test Date: 2017-05-15 Test Time: 09:05:47 Pat Name: URBAN DOUGLASS Department: Room: Gender: Canine Service Instructor Trainer: Rj ROWELL : 1945 Requested By: Rigoberto Kenney Order Number: [id number] MD: Kendall Olea Measurements Intervals [place] Rate: 61 P: 47 CO: 231 QRS: -37 QRSD: 126 T: 106 QT: 436 QTc: 440 Interpretive Statements Sinus rhythm Prolonged CO interval Left bundle branch block Compared to ECG 04/30/2017 07:16:10 First degree AV block now present Atrial flutter no longer present Electronically Signed On 05-16-2017 13:50:10 CDT by Kendall Olea [email or web address] <ELECTRONICALLY SIGNED> By: Kendall Olea MD 05/16/17 1350 0905 09 Kendall Olea MD /VICKI
[2017-05-15 07:24] VITALS: BP 125/69
[2017-05-15 07:27] LABS: HEMATOCRIT 48.9 % (42.0-52.0); HEMOGLOBIN 16.5 gm/dL (14.0-18.0); MCH 31.4 pg (26.0-34.0); MCHC 33.8 g/dL (28.0-37.0); MCV 92.7 fL (80.0-100.0); RBC 5.27 mil/uL (4.50-6.00); RDW 13.8 % (10.5-14.5); WBC 8.3 thou/uL (4.0-11.0)
[2017-05-15 07:41] LABS: CALCIUM 8.9 mg/dL (8.5-10.1); CREATININE 1.1 mg/dL (0.7-1.3); POTASSIUM 4.3 mmol/L (3.5-5.1)
[2017-05-15 07:46] LABS: ALBUMIN 3.2 g/dL (3.4-5.0); PROTIME 9.8 Seconds (9.3-11.4); TOTAL BILIRUBIN 0.5 mg/dL (<0.1-1.0); TOTAL PROTEIN 6.9 g/dL (6.4-8.2)
== END | disposition home or self-care (01) ==
LOC: CATH 06:48
PROVIDERS: Internal Medicine Cardiovascular Disease
DX: I44.7 Left bundle-branch block, unspecified (principal); I44.30 Unspecified atrioventricular block

== ENCOUNTER → 2018-01-16 | Outpatient (CLI) | payer OTHER, MEDICARE | LOC: CAT 12:05 | DX: R91.1 Solitary pulmonary nodule (principal); J43.2 Centrilobular emphysema; J98.4 Other disorders of lung ==

== ENCOUNTER → 2019-01-14 | Outpatient (CLI) | payer OTHER, MEDICARE | LOC: RAD 10:23 | DX: R06.00 Dyspnea, unspecified (principal); S22.32XD Fracture of one rib, left side, subsequent encounter for fracture with routine healing; Z88.0 Allergy status to penicillin; X58.XXXD Exposure to other specified factors, subsequent encounter ==

== ENCOUNTER → 2019-04-07 | Outpatient (CLI) | payer OTHER | LOC: RAD 12:30 | DX: J43.9 Emphysema, unspecified (principal); J84.10 Pulmonary fibrosis, unspecified; J98.11 Atelectasis; J98.4 Other disorders of lung; M47.814 Spondylosis without myelopathy or radiculopathy, thoracic region ==

== ENCOUNTER → 2019-06-07 | Outpatient (CLI) | payer OTHER | LOC: RAD 12:46 | DX: J43.2 Centrilobular emphysema (principal); J98.4 Other disorders of lung; Z88.0 Allergy status to penicillin ==

== ENCOUNTER → 2019-08-11 | Outpatient (CLI) | payer OTHER | LOC: RAD 12:02 | DX: J43.9 Emphysema, unspecified (principal); I70.0 Atherosclerosis of aorta ==

== ENCOUNTER → 2019-12-08 | Outpatient (CLI) | payer OTHER | LOC: RAD 10:18 | DX: J44.9 Chronic obstructive pulmonary disease, unspecified (principal) ==

== ENCOUNTER → 2020-10-16 | Outpatient (CLI) | payer OTHER | LOC: RAD 10:32 | PROVIDERS: ATTEND Pediatrics | DX: R06.02 Shortness of breath (principal) ==

== ENCOUNTER → 2020-10-23 | Outpatient (CLI) | payer OTHER | LOC: CAT 10:43 | PROVIDERS: ATTEND Family Medicine | DX: Z12.2 Encounter for screening for malignant neoplasm of respiratory organs (principal); Z87.891 Personal history of nicotine dependence ==

== ENCOUNTER → 2021-11-06 | Outpatient (CLI) | payer OTHER | LOC: CAT 10:14 | PROVIDERS: ATTEND Pediatrics | DX: Z12.2 Encounter for screening for malignant neoplasm of respiratory organs (principal); Z87.891 Personal history of nicotine dependence ==